=== PATIENT | female | born 1995 | race Caucasian/White ===

== ENCOUNTER 2021-08-26 21:10 | Inpatient (IN) | payer MEDICAID, SELFPAY ==
[~2021-08-26] VITALS: Ht 157.5 cm; Wt 62.1 kg
[~2021-08-26 21:10] MED LIST: PNV91TAB8 PO
[2021-08-26] MEDS ORDERED: AMPICILLIN 2,000 MG VIAL ONE (21:27)
[2021-08-26] MEDS ORDERED: OXYTOCIN 20 UNITS/LR PREMIX 1,000 ML IV ONE (21:32)
[2021-08-26] MEDS ORDERED: LIDOCAINE 1% 500 MG/50 ML VIAL ONE (21:34)
[2021-08-26] MEDS ORDERED: NALBUPHINE 10 MG/ML AMP IVP PRN (21:35)
[2021-08-26] MEDS ORDERED: LACTATED RINGERS 1,000 ML IV SCH (21:35)
[2021-08-26] MEDS ORDERED: PROMETHAZINE 25 MG/ML VIAL IVP PRN (21:35)
[2021-08-26] MEDS ORDERED: OXYTOCIN 20 UNITS in LACTATED RINGERS 1,000 ML IV SCH (21:35)
[2021-08-26] MEDS ORDERED: AMPICILLIN 2,000 MG in NACL 0.9% MINI-BAG PLUS 100 ML IV SCH (21:35)
[2021-08-26 22:34] LABS: BASOPHILS % (AUTO) 0.2 % (0.0-2.0); EOSINOPHILS % (AUTO) 0.3 % (0.0-4.0); HEMATOCRIT 28.1 % (36-48); HEMOGLOBIN 9.1 g/dL (12.0-16.0); LYMPHOCYTES # (AUTO) 2.3 K/uL (2.5-16.5); LYMPHOCYTES % (AUTO) 25.9 % (20.5-51.1); MEAN CORPUSCULAR HEMOGLOBIN 26 pg (27-31); MEAN CORPUSCULAR HGB CONC 33 g/dL (33-37); MEAN CORPUSCULAR VOLUME 79.6 fL (80-94); MONOCYTES # (AUTO) 0.7 K/uL (0.8-1.0); NEUTROPHILS # (AUTO) 5.9 K/uL (1.8-7.7); NEUTROPHILS % (AUTO) 65.6 % (42.2-75.2); PLATELET COUNT (AUTO) 181 K/uL (140-450); RED BLOOD CELL COUNT(AUTO) 3.53 MIL/uL (4.20-5.40); RED CELL DISTRIBUTION WIDTH 21.1 % (11.6-13.7); WHITE BLOOD COUNT (AUTO) 9.1 K/uL (4.8-10.8)
[2021-08-26 23:00] LABS: ALBUMIN 2.3 g/dL (3.4-5.0); ANION GAP 15.8 (8-16); CARBON DIOXIDE 21.8 mmol/L (21-32); CREATININE 0.6 mg/dL (0.6-1.3); POTASSIUM 3.6 mmol/L (3.5-5.1); TOTAL BILIRUBIN 0.2 mg/dL (0.0-1.0)
[2021-08-26 23:57] LABS: BARBITURATE, URINE NEGATIVE ng/ml (NEG <=200); BENZODIAZEPINE, URINE NEGATIVE ng/mL (NEG <=200); CANNABINOID, URINE NEGATIVE ng/mL (NEG <=50); COCAINE, URINE NEGATIVE ng/mL (NEG <=300); OPIATE, URINE NEGATIVE ng/mL (NEG <=2000); PHENCYCLIDINE SCREEN,URINE NEGATIVE ng/mL (NEG <=25)
[2021-08-27] MEDS ORDERED: AMPICILLIN 1,000 MG in NACL 0.9% MINI-BAG PLUS 50 ML IV SCH ×2
[2021-08-27 00:18] LABS: APPEARANCE,URINE HAZY (CLEAR); BILIRUBIN,URINE NEGATIVE (NEGATIVE); BLOOD, URINE 3+ (NEGATIVE); COLOR,URINE AMBER (YELLOW); LEUKOCYTE ESTERASE ,URINE NEGATIVE (NEGATIVE); NITRITE, URINE NEGATIVE (NEGATIVE); PH,URINE 7.5 (5.0-9.0); UGLUCOSE NEGATIVE (NEGATIVE)
[2021-08-27 00:21] LABS: RBC,URINE TOO NUMEROUS TO COUN /HPF (0-5); WBC,URINE 0-5 /HPF (0-5)
[2021-08-27] MEDS ORDERED: SODIUM PHOSPHATE 118 ML ENEM RC PRN (02:20)
[2021-08-27] MEDS ORDERED: TEMAZEPAM 15 MG CAP PO PRN (02:20)
[2021-08-27] MEDS ORDERED: MEASLES, MUMPS, AND RUBELLA 1 VIAL SQVAC ONE (02:20)
[2021-08-27] MEDS ORDERED: METHYLERGONOVINE 0.2 MG/ML AMP IM PRN (02:20)
[2021-08-27] MEDS ORDERED: IBUPROFEN 800 MG TAB PO PRN (02:20)
[2021-08-27] MEDS ORDERED: oxyCODONE/APAP 5/325 MG 1 TAB TAB PO PRN (02:20)
[2021-08-27] MEDS ORDERED: BENZOCAINE/MENTHOL 20%-0.5% 60 GM CAN TP PRN (02:20)
[2021-08-27] MEDS: HYDROcodone/APAP 5/325 MG 1 TAB TAB PO PRN (02:41)
[2021-08-27] MEDS ORDERED: FLU VACCINE QS2021-22 0.5 ML SYR IMVAC ONE (06:20)
[2021-08-27 09:19] LABS: HEMOGLOBIN 8.7 g/dL (12.0-16.0)
--- NOTE | 2021-08-27 15:59 | NUR ---
PATIENT HAS BEEN SCREENED AND CATEGORIZED LOW NUTRITION RISK. PATIENT WILL BE SEEN WITHIN 7 DAYS OF ADMISSION. 09/02/[address]
[2021-08-27] MEDS ORDERED: DOCUSATE SOD/SENNA 50/8.6 MG 1 TAB PO SCH (21:00)
[2021-08-28] MEDS: HYDROcodone/APAP 5/325 MG 1 TAB TAB PO PRN (04:39)
== END 2021-08-28 14:00 | disposition home or self-care (01) | DRG 807 ==
LOC: OBSVTOIN 21:10 → MLD 21:10 → MFCC 08-27 01:25
PROVIDERS: ADMIT Obstetrics & Gynecology; ATTEND Obstetrics & Gynecology
PROC: 10E0XZZ Delivery of Products of Conception, External Approach (ICD-10-PCS; principal; 2021-08-26)
PROC: 10907ZC Drainage of Amniotic Fluid, Therapeutic from Products of Conception, Via Natural or Artificial Opening (ICD-10-PCS; 2021-08-26)
PROC: 0HQ9XZZ Repair Perineum Skin, External Approach (ICD-10-PCS; 2021-08-26)
DX: O70.0 First degree perineal laceration during delivery (principal); Z37.0 Single live birth; Z3A.39 39 weeks gestation of pregnancy; Z20.822 Contact with and (suspected) exposure to COVID-19
CPT/HCPCS: 36415; 59409; 80053; 80305; 81001; 85018; 85025; 86592; 86762; 86886; 86900; 86901; 87340; 87653-90; 90715; J0290; J2001; J2590; J7120